=== PATIENT | male | born 1940 | race Caucasian/White ===

== ENCOUNTER 2018-08-26 18:49 | Emergency (ER) | payer MEDICARE, BC ==
[~2018-08-26] VITALS: Ht 167.6 cm; Wt 75.0 kg
[~2018-08-26 18:49] MED LIST: ACET500T98; ASPI-535; ASPI-650; ATOR40TA21; DARVOCET; EZET10TA31; FA/M1TAB3; LISI-313; MELO7.5T38; METO10TA92; METO25TA54; NEBI5TAB9; PANT40TA3; SERT100T; TAMS-14; [UNRECOGNIZED DRUG - CODE]
[2018-08-26 19:00] VITALS: Ht 167.6 cm; Wt 75.0 kg
[2018-08-26] MEDS ORDERED: BACITRACIN 0.9 GM OINT TOP ONE (19:00)
[2018-08-26] MEDS ORDERED: DIPHTH/TET/ACEL PERTUSS (ADULT) 0.5 ML VIAL IM* ONE (19:00)
[2018-08-26 19:25] VITALS: BP 149/71; PULSE 90; RESP 19
--- NOTE | 2018-08-26 19:58 | ERD ---
ER Documentation Chief Complaint Chief Complaint HEAD PAIN/ABRASION S/P GROUND LEVEL FALL HPI This is a 78-year-old man with a past medical history of hypertension, hyperlipidemia, BPH, GERD, anemia who is presenting with a head trauma after fall. The patient reports missing a step and falling down approximately 5 stairs. The patient his head against the floor on the bottom of the steps. He sustained an abrasion to the top of his forehead. He does not endorse any other injuries. He has some tenderness around the abrasion, but no other headache. He does not endorse any vision changes. He does not endorse any new neck pain or back pain. The patient does endorse chronic unchanged spinal pain. The patient does not endorse any cardiothoracic or abdominal trauma. He has no chest pain or trouble breathing. He has no abdominal pain. He is ambulatory without difficulty. He has no saddle anesthesia. He has no incontinence or retention of urine or stool. He has no focal deficits. He has no weakness or numbness or tingling to the face or extremities. ROS All systems reviewed and are negative except as per history of present illness. Medications Home Meds Reported Medications Ferrous Fumarate (Ferretts) 325 ( 106 )Mg Tablet 09/20/09 Sertraline Hcl* (Zoloft*) 100 Mg Tablet 09/20/09 Aspirin Ec (Aspir 81) 81 Mg Tablet. 09/20/09 Metoprolol Succinate (Toprol Xl) 25 Mg Tab.sr.24h 09/20/09 Fa/Mv,Ca,Fe,Min/Lycopene/Lut (Centrum Tablet) 1 Tab Tablet 09/20/09 Acetaminophen (Tylenol) 500 Mg Tab 09/20/09 Propoxyphene-N/Acetaminophen (Darvocet N-100) 1 Tab Tab 09/20/09 Metoclopramide* (Reglan*) 10 Mg Tablet 09/20/09 Lisinopril* (Lisinopril*) 5 Mg Tablet 09/20/09 Nebivolol* (Bystolic*) 5 Mg Tab 09/20/09 Ezetimibe* (Zetia*) 10 Mg Tablet 09/20/09 Atorvastatin (Lipitor) 40 Mg Tablet 09/20/09 Pantoprazole* (Protonix*) 40 Mg Tablet. 09/20/09 Tamsulosin Hcl* (Flomax*) 0.4 Mg Cap.sr.24h 09/20/09 Meloxicam* (Meloxicam*) 7.5 Mg Tablet 09/19/09 Propoxyphene-N/Acetaminophen (Darvocet N-100) 1 Tab Tab 09/19/09 Aspirin (Aspirin) 81 Mg Tablet 09/19/09 Pantoprazole* (Protonix*) 40 Mg Tablet.dr 09/19/09 Tamsulosin Hcl* (Flomax*) 0.4 Mg Cap.sr.24h 09/19/09 Nebivolol* (Bystolic*) 5 Mg Tab 09/19/09 Lisinopril* (Lisinopril*) 5 Mg Tablet 09/19/09 Atorvastatin (Lipitor) 40 Mg Tablet 09/19/09 Allergies Allergies: Coded Allergies: latex (Verified Allergy, Intermediate, RASH, 09/20/09) PMhx/Soc History of Surgery: Yes (appendectomy L knee arthroscopy) Anesthesia Reaction: No Hx Neurological Disorder: No Hx Respiratory Disorders: No Hx Cardiac Disorders: Yes (HYPERTENTION, PVD) Hx Psychiatric Problems: No Hx Miscellaneous Medical Probl: Yes (DJD,lumbar disk dse,sciatica with stenosis, (+) PPD) Hx Alcohol Use: Yes (MIXED DRINK) Hx Substance Use: No Hx Tobacco Use: No FmHx Family History: No diabetes Physical Exam Vitals Vital Signs Date Temp Pulse Resp B/P (MAP) Pulse Ox O2 O2 Flow FiO2 Time Delivery Rate 08/26/18 97.6 63 18 151/70 96 19:00 (97) Physical Exam Const: No apparent distress, well-developed, well-nourished Head: Normocephalic. No andre sign. Forehead abrasion. Eyes: Normal Conjunctiva. Extraocular movements intact. Pupils equal, round and reactive to light. No raccoon eyes ENT: Normal External Ears, Nose and Mouth. Neck: No midline spinal tenderness. Full range of motion. No meningismus. Resp: Clear to auscultation bilaterally, No wheezes, rales or rhonchi Cardio: Regular rate and rhythm. No murmurs, rubs or gallops Abd: Soft, non tender, non distended. Normal bowel sounds Skin: No petechiae or rashes Back: No step-offs or deformities. No midline tenderness. No CVA tenderness Ext: No cyanosis, or edema Neur: Awake and alert, oriented 4. Cranial nerves intact. No facial droop. Normal strength, sensation and coordination. Psych: Normal Mood and Affect Results 24 hrs Current Medications Medications Dose Sig/Lelia Start Time Status Last (Trade) Ordered Route PRN Stop Time Admin Dose Reason Admin Diphtheria/ 0.5 ml ONCE ONCE 08/26/18 DC Tetanus/Acell IM* 19:00 Pertussis 08/26/18 19:01 (Adacel) Bacitracin 1 applic ONCE ONCE 08/26/18 DC (Bacitracin TOP 19:00 Oint (Ud)) 08/26/18 19:01 Procedures/MDM MDM The patient's presentation warrants further investigation. Previous medical records, if available, were reviewed. IMAGING Imaging and Radiology interpretation reviewed. CT head FINDINGS: There is no intracranial hemorrhage, mass effect, or midline shift. No extra-axial fluid collection is seen. There is mild to moderate age appropriate diffuse cerebral volume loss with sulcal and ventricular dilatation. Ventricles are of normal configuration. Mild periventricular white matter disease is present in both cerebral hemispheres with no associated mass effect. There are vascular calcifications at the base of the brain. the stover white matter differentiation appears well-preserved. The visualized paranasal sinuses and osseous structures are grossly unremarkable. No skull fracture is visualized and there is no significant scalp swelling. IMPRESSION: No intracranial hemorrhage or skull fracture. Age-appropriate atrophy. White matter disease compatible with chronic small vessel ischemia. No mass or evidence of acute transcortical infarct. Electronically viewed and signed by .Wilmer Sewell MD, on 08/26/2018 19:30 CT cervical spine FINDINGS: Noted is 3.5 mm anterolisthesis of C2 on C3. There is 2.8 mm anterolisthesis of C7-T1. There is loss of normal lordosis with mild kyphotic deformity of the upper cervical spine. No prevertebral soft tissue swelling is present. Vertebral bodies have normal height with no fracture. There is fusion of C3-C4 vertebral bodies. Severe degenerative narrowing is present in C4-C5, C5-C6, C6-C7 and C7-T1 discs. Pedicles and posterior elements are intact with no fracture. There is moderate central stenosis at C4-C5 mild to moderate stenosis at C5-C6 and C6-C7. No significant disc herniation is seen. There is multilevel bilateral foraminal stenosis. IMPRESSION: No cervical fracture. Anterolisthesis C2-C3 and C7-T1 likely degenerative. Flexion extension views of the cervical spine in the lateral projection could be performed to insure ligamentous stability. Anterior fusion C3-C4 with multilevel degenerative disc disease and multilevel bilateral fora blessing stenosis. Central stenosis as above. No gross disc herniation. Electronically viewed and signed by .Wilmer Sweell MD, on 08/26/2018 19:36 TREATMENT/DISPOSITION The patient presents after a trauma. The patient was evaluated fully without maritza dence of emergent posttraumatic pathology. The patient's CT imaging of the head and cervical spine are unremarkable. The patient has no focal deficits. I've low suspicion for intracranial pathology. I have low suspicion for cerebral ischemia or intracranial hemorrhage. The patient has no cervical spine tenderness. He can move his neck in all directions without any pain. As stated above, he does not have any focal deficits. He is not altered or intoxicated. He does not have any distracting injuries. The patient's cervical spine was clinically cleared using the Nexus C-spine rule. The patient does not have any saddle anesthesia. He has not been incontinent of urine or stool. He has not had any retention of urine or stool. I have low suspicion for spinal cord injury. The patient does not endorse any cardiothoracic or abdominal injury. There is no evidence of injury on exam. I have low suspicion for extremity injury. There is no evidence of any penetrating injuries. The patient's forehead abrasion does not require any emergent repair. Bacitracin was placed on the wound. The patient does not know when his last tetanus shot was. It was likely greater than 5 years. He was given 1 in the emergency department. DISCHARGE Upon reevaluation of the patient, symptoms have improved. No emergent diagnoses were identified. At this time, I feel that the patient stable for discharge. The patient was instructed to follow-up with a primary care physician in 1-3 days. The patient will be given strict precautions with which to return to the emergency department. Prescriptions: None The patient's blood pressure was elevated at greater than 120/80 while in the emergency department. The patient was otherwise stable with no evidence of hypertensive urgency or emergency. The patient does not require admission for blood pressure control. I have discussed with the patient the risks of hypertension. I have instructed the patient to return to the ER for any new or worsening symptoms including chest pain, shortness of breath, headache, blurred vision, confusion, nausea, vomiting or LOC. I have advised the patient to follow up with the primary care physician for outpatient monitoring and treatment for hypertension in 1-3 days. Disclaimer: Inadvertent spelling and grammatical errors are likely due to EHR/dictation software use and do not reflect on the overall quality of patient care. Note that the electronic time recorded on this note does not necessarily reflect the actual time of the patient encounter. Departure Diagnosis: Primary Impression: Head trauma Encounter type: initial encounter Qualified Codes: S09.90XA - Unspecified injury of head, initial encounter Additional Impressions: Forehead abrasion Encounter type: initial encounter Qualified Codes: S00.81XA - Abrasion of other part of head, initial encounter Fall Encounter type: initial encounter Qualified Codes: W19.XXXA - Unspecified fall, initial encounter Condition: Stable Patient Instructions: Fall Prevention, Fall, Mechanical, Head Trauma (Traumatic Brain Injury) Additional Instructions: Thank you for for coming to [facility] for your care today. Please ask your nurse or provider if you have questions about your care today and do not leave until all your questions have been answered. Please use any medications given as directed and follow-up with your doctor (or the doctor you were referred to) in the next 1-3 days. If you do not have a primary care doctor you may follow up at the [facility] or [facility] (listed below). You may also use motrin and tylenol as needed for fever and/or pain unless instructed otherwise by your provider or nurse. Indications for more urgent follow-up have been discussed, but you may return to the Emergency Department at ANY time for any worrisome or worsening symptoms. If you have abdominal pain, please know that no test or exam you received is perfect and you should follow up within 8 hours for continued pain. If you had any imaging studies today, such as an X-Ray or CT Scan, these studies will be reviewed later by a radiologist. You will be called if there are important findings that were not identified today, so make sure the contact information you provided at registration is correct. If you received any narcotic pain control medicine today, such as Vicodin, Morphine or Dilaudid, your coordination and judgment may be affected for a number of hours. Please do not drive or operate heavy machinery, and you may want someone to assist you at home. If you were given a prescription for narcotic medication, be aware that it is very addictive- use sparingly and only if necessary. PLEASE SEEK FURTHER EVALUATION AND MANAGEMENT AT YOUR DOCTORS OFFICE WITHIN THE NEXT 1-3 DAYS. IT IS YOUR RESPONSIBILITY TO MAKE AN APPOINTMENT FOR FOLOW-UP C ARE. IF YOU HAVE A PRIMARY DOCTOR, PLEASE CALL THEIR OFFICE TO SCHEDULE AN APPOINTMENT FOR FOLLOW UP. IF YOU DO NOT HAVE A PRIMARY DOCTOR YOU CAN CALL OUR PHYSICIAN REFERRAL HOTLINE AT IF YOU CAN NOT AFFORD TO SEE A PHYSICIAN YOU CAN CHOSE FROM THE FOLLOWING [facility] CLINICS: [facility] [address] [facility] [facility] [address] [facility] [facility] [address] [facility] [facility] [address]. [facility] [address] [facility]. [facility]. [address] LEVAR BARBOUR MD Aug 26, 2018 19:57
== END 2018-08-26 20:25 | disposition home or self-care (01) ==
LOC: E/R 18:49
DX: S00.81XA Abrasion of other part of head, initial encounter (principal); S09.90XA Unspecified injury of head, initial encounter; R40.2142 Coma scale, eyes open, spontaneous, at arrival to emergency department; R40.2252 Coma scale, best verbal response, oriented, at arrival to emergency department; R40.2362 Coma scale, best motor response, obeys commands, at arrival to emergency department; I10 Essential (primary) hypertension; R51 Headache; W10.9XXA Fall (on) (from) unspecified stairs and steps, initial encounter; Y92.9 Unspecified place or not applicable; Z23 Encounter for immunization; Z91.040 Latex allergy status; Z79.82 Long term (current) use of aspirin
CPT/HCPCS: 70450; 72125; 90471; 90715